=== PATIENT | female | born 1995 | race Caucasian/White ===

== ENCOUNTER 2022-06-07 10:40 | Outpatient (REF) | payer OTHER, SELFPAY ==
--- NOTE | ~2022-06-07 | US_ITS ---
EXAMINATION: US PELVIS CLINICAL INFORMATION: Left lower quadrant pain. COMPARISON: None. TECHNIQUE: Ultrasound of the pelvis is performed using both transabdominal and transvaginal transducers along with Doppler. Transvaginal imaging is performed due to inadequate visualization transabdominally. FINDINGS: Uterus: The uterus is retroverted, retroflexed and measures 8.1 cm in length, 4.3 cm in AP and 5.2 cm wide. The double wall endometrial thickness is 1.1 cm. The uterus is smooth in contour and has normal myometrial echogenicity. No visible fibroid. Adnexa: Both ovaries are visualized. There is normal color flow to the adnexa. There is no ovarian torsion. There is no pelvic ascites or fluid collection. Right ovary measures 3.4 x 2.6 x 2.4 cm and volume 11.11 mL. Left ovary measures 3.2 x 2.6 x 2.0 cm and volume 8.7 mL. There is an anechoic cyst in the left adnexa measuring 2.5 x 1.9 x 2.17 cm, question exophytic ovarian cyst versus paraovarian cyst. It has internal septation. No free fluid seen in the cul-de-sac. US/US pelvic and transvaginal IMPRESSION: Unremarkable uterus and right ovary. Left paraovarian versus exophytic ovarian cyst. There is no free fluid in cul-de-sac.
== END 2022-06-07 10:41 | disposition home or self-care (01) ==
LOC: HO.US 10:40
PROVIDERS: Visit Provider Advanced Practice Midwife
DX: R10.32 Left lower quadrant pain (principal)
CPT/HCPCS: 76830; 76856

== ENCOUNTER → 2023-05-06 14:30 | Outpatient (BNV) | payer OTHER, SELFPAY | PROVIDERS: Visit Provider Radiology Diagnostic Radiology | DX: N63.10 Unspecified lump in the right breast, unspecified quadrant (principal) | CPT/HCPCS: 76642 ==

== ENCOUNTER 2023-05-06 14:40 | Outpatient (REF) | payer OTHER, SELFPAY ==
--- NOTE | ~2023-05-06 | US_ITS ---
EXAMINATION: US DIAGNOSTIC ULTRASOUND BREAST, right axilla. CLINICAL INFORMATION: Palpable abnormality right axillary region, 27-year-old female. COMPARISON: None available. TECHNIQUE: Ultrasound of the right axilla is performed with real-time gibbs scale imaging and color Doppler. Imaging was performed in the region as indicated by the patient. FINDINGS: Within the right lower axilla, there is a dermal-based hyperechoic lesion measuring 0.6 x 0.6 x 0.4 cm, with circumscribed margins, through-transmission, and internal color vascularity on Doppler flow. There is associated thinning of the skin abutting the superior margin of the lesion. The finding is most consistent with a sebaceous cyst or other dermal lesion. Results were discussed with the patient at time of visit. Surgical management is recommended. US/US breast RT limited mamm only IMPRESSION: Palpable abnormality in the right lower axilla correlates with a hyperechoic vascular dermal lesion measuring 6 x 6 x 4 mm. Surgical management recommended. Findings and recommendations were discussed with the patient directly. ASSESSMENT: BI-RADS 2: Benign RECOMMENDATION: Clinical/surgical management recommended.
== END 2023-05-06 14:41 | disposition home or self-care (01) ==
LOC: HO.MAMMO 14:40
PROVIDERS: Visit Provider Advanced Practice Midwife
DX: R22.31 Localized swelling, mass and lump, right upper limb (principal)
CPT/HCPCS: 76642

== ENCOUNTER 2023-05-20 09:07 | Outpatient (AMB) | payer OTHER, SELFPAY ==
--- NOTE | 2023-05-20 09:11 | MHC.OFFVIS ---
Intake Vital Signs 05/20/23 09:17 Height 5 ft 3 in Weight 179 lb BMI 31.7 BP 134/72 Blood Pressure Location Lt brachial Position Sitting Pulse 83 Intake Visit Reasons: Right axillary mass Intake Note: Patient is seen in office for evaluation and treatment of a right axillary mass. Patient c/o: onset 8 to 9 months, increase/decrease, painful when growing, dark spot, denies discharge, redness, swelling, nausea, vomit, diarrhea, constipation Financial Intern Required: No Accompanied by: Self / Same As Patient Allergies No Known Allergies [No Known Allergies*] Allergy (Unverified 06/12/20 17:03) Medication List - Last Reconciled 05/20/23 by Ronak Mendoza MD No Known Home Meds HPI HPI Comments History of Present Illness Details 27-year-old female patient presenting with complaints of a palpable lump located in the right axilla. This occasionally will increase in size but then decrease in size. She reports occasional discomfort and skin redness but denies any discharge from the lesion. She denies any previous surgery at this location. Workup with ultrasound did reveal a subcutaneous lesion which appears possibly related to a sebaceous cyst. She is interested in having the lesion removed. [facility] [place] Family History Maternal Grandfather Colon cancer Social History Alcohol intake: current Patient Tobacco Use Status: Never used Tobacco Review of Systems Const All systems reviewed & are unremarkable except as noted in HPI and below Denies chills, Denies fever(s), Denies headache(s), Denies poor appetite and Denies weakness ENT Denies headache(s) Card Denies chest pain, Denies irregular heart rhythm, Denies palpitations and Denies dyspnea Resp Denies cough, Denies excessive phlegm production and Denies dyspnea GI Denies abdominal pain, Denies bloating, Denies change in bowel habits, Denies constipation, Denies heartburn, Denies diarrhea, Denies nausea and Denies vomiting Denies urinary frequency Musc Denies back pain, Denies muscle weakness and Denies numbness Skin/Breast Denies changing lesions and Denies unusual bruising Neuro Denies headache(s), Denies numbness, Denies paresthesias and Denies weakness Psych Denies anxiety and Denies depression Endo Denies palpitations Timo/Lymph Denies lymphadenopathy Physical Exam Const General: cooperative and no acute distress Nutritional Appearance: well nourished Orientation/consciousness: patient oriented x3 Limitations: no limitations HEENT Head: Yes normocephalic and Yes atraumatic Ears: hearing grossly normal bilaterally Chest Chest/axillae images: 1. 1.5 cm subcutaneous cyst, mobile within the subcutaneous tissue with no fluctuance to palpation. Nontender to palpation. Resp Effort & Inspection: normal respiratory effort, no audible wheezes, no cough and no respiratory distress Cardio Jugular venous distension: no JVD GI Inspection: Yes normal to inspection Skin Other: Warm, dry, no rash Neuro General: patient oriented x3 Extrem General: Yes no clubbing, cyanosis or edema Assessment & Plan Assessment & Plan (1) Epidermal inclusion cyst: Code(s): L72.0 - Epidermal cyst Plan 27-year-old female patient with an apparent epidermal inclusion cyst of the right axilla confirmed by ultrasound which appears to wax and wane in size. Options include continued observation verses excision. Patient with for further have the lesion removed and after discussion of the procedure, risks, and alternatives consents to an excision of the right axillary epidermal inclusion cyst as a minor surgery under local anesthesia. Coding Level of Care Code New Pt Level 4 (11110) Diagnoses Epidermal inclusion cyst L72.0
[2023-05-20 09:17] VITALS: BP 134/72; PULSE 83; BMI 31.7
== END 2023-05-20 09:20 | disposition home or self-care (01) ==
PROVIDERS: PCP Nurse Practitioner Family; Referring Provider Advanced Practice Midwife; Visit Provider Surgery
DX: L72.0 Epidermal cyst (principal)
CPT/HCPCS: 99204

== ENCOUNTER → 2023-05-20 09:07 | Outpatient (BNVA) | payer OTHER, SELFPAY | PROVIDERS: PCP Nurse Practitioner Family; Referring Provider Advanced Practice Midwife; Visit Provider Surgery | DX: L72.0 Epidermal cyst (principal) | CPT/HCPCS: 99202 ==

== ENCOUNTER 2023-06-09 13:43 | Outpatient (REF) | payer OTHER, SELFPAY ==
[2023-06-09 14:03] VITALS: BMI 32.0
[2023-06-09 14:04] VITALS: BP 115/63; PULSE 64; RESP 16; TEMP 36.4; O2SAT 100
[2023-06-09 14:41] VITALS: BP 119/74; PULSE 65; RESP 16; O2SAT 100
--- NOTE | 2023-06-09 14:44 | W.PM.OPN ---
Operative Note Operative Note Date of Service: 06/09/23 Narrative: Preoperative diagnosis: Epidermal inclusion cyst right axilla Postoperative diagnosis: Same Procedure: Excision of epidermal inclusion cyst right axilla Surgeon: Ronak Mendoza MD Party Plan Sales Unit Sales Leader: AMADEO Tillman Anesthesia: Local lidocaine 1% with epinephrine Indications for procedure: 27-year-old female patient presenting with a palpable cyst in the right axilla which is causing some discomfort. Patient is requested excision. Operative findings: 1 cm epidermal inclusion cyst right axilla Specimen: Epidermal inclusion cyst right axilla Estimated blood loss: Less than 2 mL Complications: None Procedure details: Patient was brought to the minor surgery suite placed in a supine position. Patient's right arm was placed over her head. The site of surgery was confirmed by the patient in the right axilla. After assuring informed consent the skin was prepped with Betadine and draped in a sterile fashion. Local anesthesia was then infiltrated circumferentially around the lesion. Incision was then made over the lesion carried out through subcutaneous tissue. Sharp dissection was then used to dissect the lesion from the surrounding subcutaneous tissue. The lesion was passed off the table and sent to pathology for further examination. After assuring adequate hemostasis the skin was closed using interrupted 4-0 nylon sutures. Sterile dressings consisting of 2 x 2 gauze and Tegaderm were then applied. The patient tolerated the procedure well. She was discharged to home in stable condition.
== END 2023-06-09 13:44 | disposition home or self-care (01) ==
LOC: HO.MS 13:43
PROVIDERS: Visit Provider Surgery
PROC: (CPT 11401; principal; 2023-06-09 14:20)
DX: L72.0 Epidermal cyst (principal)
CPT/HCPCS: 11401; 88304

== ENCOUNTER → 2023-06-09 13:43 | Outpatient (BNV) | payer OTHER, SELFPAY | PROVIDERS: Visit Provider Surgery | DX: L72.0 Epidermal cyst (principal) | CPT/HCPCS: 11401 ==

== ENCOUNTER 2023-06-17 09:29 | Outpatient (AMB) | payer OTHER, SELFPAY ==
--- NOTE | 2023-06-17 09:35 | A.OFFVIS_ITS ---
Intake Vital Signs 3 06/17/23 09:45 Height 5 ft 2 in Weight 179 lb BMI 32.7 BP 120/80 Blood Pressure Location Lt brachial Position Sitting Intake Visit Reasons: S/P exc. Rt axillary mass Intake Note: Patient is seen in office for post op assessment post excision of right axillary mass. Patient c/o: denies any concerns Hotel Dining Room Cashier Required: No Accompanied by: Self / Same As Patient Allergies No Known Allergies [No Known Allergies*] Allergy (Unverified 06/17/23 09:45) HPI HPI Comments 2 History of Present Illness0 Details 27-year-old female patient presenting wi th complaints of a palpable lump located in the right axilla. This occasionally will increase in size but then decrease in size. She reports occasional discomfort and skin redness but denies any discharge from the lesion. She denies any previous surgery at this location. Workup with ultrasound did reveal a subcutaneous lesion which appears possibly related to a sebaceous cyst. She is interested in having the lesion removed. She underwent excision of the right axillary cyst on 06/09/2023. Pathology revealed a ruptured and organizing epidermal inclusion cyst. She tolerated the procedure well denies any ongoing problems. [facility] Surgical History Hx of excision of epidermal inclusion cyst (06/09/23) Family History Maternal Grandfather Colon cancer Social History Alcohol intake: current Patient Tobacco Use Status: Never used Tobacco Physical Exam Vital Signs: Last Vital Signs BP 120/80 06/17/23 09:45 BMI result Body Mass Index 32.7 Chest Other: Excision site in the right axilla is clean, dry, and intact without redness or discharge. Sutures removed and wounds found to be well healed. Chest/axillae images: 2 1. Incision right axilla Skin Other: Warm, dry, no rash Extrem Other: No edema Assessment & Plan Assessment & Plan (1) Epidermal inclusion cyst: Code(s): L72.0 - Epidermal cyst Plan 27-year-old female patient status post excision of a right axilla epidermal inclusion cyst. She tolerated the procedure well and her wounds found to be well healed. She should follow up as needed. Coding Level of Care Code Global (78656) Diagnoses Epidermal inclusion cyst L72.0
[2023-06-17 09:45] VITALS: BP 120/80; BMI 32.7
== END 2023-06-17 09:44 | disposition home or self-care (01) ==
PROVIDERS: PCP Nurse Practitioner Family; Visit Provider Surgery
DX: L72.0 Epidermal cyst (principal)
CPT/HCPCS: 99024

== ENCOUNTER → 2023-06-17 09:29 | Outpatient (BNVA) | payer OTHER, SELFPAY | PROVIDERS: PCP Nurse Practitioner Family; Visit Provider Surgery ==

== ENCOUNTER 2023-07-21 10:00 | Outpatient (REF) | payer OTHER, SELFPAY ==
[2023-07-21 12:10] LABS: Alanine Aminotransferase 30 U/L (0-31); Albumin Level 4.2 g/dL (3.5-5.0); Alkaline Phosphatase 85 U/L (39-117); Anion Gap 12 (12-20); Aspartate Amino Transferase 25 U/L (5-31); Bilirubin Total 0.3 mg/dL (0.0-1.0); Blood Urea Nitrogen 16 mg/dL (9-16); Calcium 9.2 mg/dL (8.4-10.2); Carbon Dioxide 25 mmol/L (22-29); Chloride 108 mmol/L (96-108); Cholesterol 174 mg/dL (<200); Estimated Glomerular Filt Rate > 60; Glucose Random 94 mg/dL (60-115); HDL Cholesterol 47 mg/dL (>40); LDL Cholesterol Calculated 112 mg/dL (<100); Sodium 141 mmol/L (135-145); Total Protein 7.4 g/dL (6.5-8.0); Triglycerides 75 mg/dL (<150)
[2023-07-21 14:29] LABS: CT PCR NOT DETECTED (Not Detect.); NG PCR NOT DETECTED (Not Detect.)
[2023-07-24 13:44] LABS: HIV RNA PCR Qn Copies Not Detected Copies/mL; HIV RNA PCR Qn Log Copies Not Detected Log cps/mL
[2023-07-25 11:25] LABS: RPR Rapid Plasma Reagin NON-REACTIVE (NON-REACTIVE)
== END 2023-07-21 10:01 | disposition home or self-care (01) ==
LOC: HO.HHCL 10:00
PROVIDERS: Visit Provider Nurse Practitioner Family
DX: Z00.00 Encounter for general adult medical examination without abnormal findings (principal); Z11.4 Encounter for screening for human immunodeficiency virus [HIV]; Z11.3 Encounter for screening for infections with a predominantly sexual mode of transmission
CPT/HCPCS: 0353U; 80053; 80061; 86592; 87536; 87900

== ENCOUNTER 2023-10-17 08:38 | Outpatient (REF) | payer OTHER, SELFPAY ==
[2023-10-17 10:26] LABS: Hematocrit 36.8 % (37.0-47.0); Hemoglobin 11.7 g/dl (12.0-16.0); Mean Corpuscular HGB Conc 31.8 g/dl (31.0-35.0); Mean Corpuscular Hemoglobin 30.6 pg (27.0-33.0); Mean Corpuscular Volume 96.3 fL (80.0-98.0); Mean Platelet Volume 10.6 fL (9.4-12.3); Platelet Count 254 X10*3/uL (160-400); Red Blood Count 3.82 X10*6/uL (4.20-5.50); Red Cell Distribution Width 12.4 % (11.0-16.0); White Blood Count 4.1 X10*3/uL (4.8-10.8)
== END 2023-10-17 08:39 | disposition home or self-care (01) ==
LOC: HO.LAB 08:38
PROVIDERS: PCP Nurse Practitioner Family; Visit Provider Nurse Practitioner Family
DX: K62.5 Hemorrhage of anus and rectum (principal)
CPT/HCPCS: 36415; 85027; 99202

== ENCOUNTER 2023-10-17 08:38 | Outpatient (AMB) | payer OTHER, SELFPAY ==
--- NOTE | 2023-10-17 08:42 | MHC.OFFVIS ---
Intake Vital Signs 10/17/23 08:43 Height 5 ft 3 in Weight 185 lb 3.013 oz BMI 32.8 BP 121/63 Blood Pressure Location Lt brachial Position Sitting Pulse 69 Intake Visit Reasons: Rectal bleeding/family hx CA Intake Note: Didier presents in the office as a new patient for rectal bleeding and family hx of cancer. CC: Rectal bleeding is on and off. No irregular bowel movements. Its normal for her just when she has a BM she does have pain and bleeding. Residential Care Facility Manager Required: No Allergies No Known Allergies [No Known Allergies*] Allergy (Unverified 10/17/23 08:44) HPI Rectal bleeding/family hx CA HPI Details 27-year-old female with no significant medical history is here today for initial consultation. 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 Patient reports that she usually moves her bowels normally. Reports that occasionally she will have blood in his stool. Patient reports that the last time it was 2 weeks ago. Patient also reports rectal pain. Admits to holding her bowels occasionally when she is work and denies her stool being hard. Patient admits to family history of CRC. Patient's maternal grandfather was diagnosed with colorectal cancer at age 45. Patient denies any abdominal pain or discomfort. Denies any weight loss. Denies ribbon like stools. Patient denies any dyspepsia, dysphagia or odynophagia. Denies any nausea or vomiting. Denies any diarrhea. [facility] Surgical History Hx of excision of epidermal inclusion cyst (06/09/23) Family History Maternal Grandfather Colon cancer Social History Alcohol intake: current Patient Tobacco Use Status: Never used Tobacco Review of Systems Const Denies weight gain and Denies weight loss ENT Reports no additional complaints, Denies dysphagia and Denies odynophagia Card Reports no additional complaints Resp Reports no additional complaints GI Denies abdominal pain, Denies belching, Denies melena, Denies bloating, Denies change in bowel habits, Denies dysphagia, Denies excessive flatus, Denies dyspepsia, Denies heartburn, Denies diarrhea, Denies loose stools, Denies nausea, Denies odynophagia, Denies vomiting and Reports other (Rectal discomfort with bowel movements) Reports no additional complaints Musc Reports no additional complaints Neuro Reports no additional complaints Psych Reports no additional complaints Endo Reports no additional complaints Physical Exam Vital Signs: Last Vital Signs Pulse 69 10/17/23 08:43 BP 121/63 10/17/23 08:43 BMI result Body Mass Index 32.8 Const General: healthy appearing, no acute distress and well developed Nutritional Appearance: obese Orientation/consciousness: patient oriented x3 Resp Effort & Inspection: normal respiratory effort, able to speak in complete sentences, no tracheal deviation and symmetric chest movement Auscultation: clear to auscultation bilaterally Cardio Rate: regular rate GI Inspection: Yes normal to inspection, No distended and Yes obesity Palpation (GI): Soft to palpation, not firm, nontender and No hepatosplenomegaly present Auscultation: normal bowel sounds Rectal Exam - Female: visual inspection normal, normal sphincter tone, No External hemorrhoid(s) present and No Internal hemorrhoid(s) present General: Yes no CVA tenderness Back/Spine/Pelvis Back: no CVA tenderness Skin General skin exam: elasticity normal, turgor normal and dry skin Neuro General: patient oriented x3 Psych Appearance: grossly normal Mental Status: mental status grossly normal Assessment & Plan Assessment & Plan (1) Rectal bleed: Code(s): K62.5 - Hemorrhage of anus and rectum Plan While we wait to bulk patient for colonoscopy we will check her blood work. Patient will take stool softener. Patient was encouraged not to hold her stools and go to the bathroom when she has the urge to do so. Patient denies having any diarrhea. Script for Proctosol send. Patient was encouraged to increase fluid intake and activity to promote better bowel motility. No hemorrhoids found on rectal exam unless patient does have internal hemorrhoids that can not be seen. Patient will return in 5 weeks, sooner on as needed basis. Patient is agreeable to this plan and verbalizes understanding of instructions she was given the opportunity to ask questions and all questions answered. Thank you for allowing me to participate in her care Orders: Orders Complete Blood Count no Diff Today K62.5 - Hemorrhage of anus and rectum Medications: New docusate sodium 100 mg PO DAILY 30 caps 3RF K59.00 - Constipation, unspecified hydrocortisone 2.5% (Proctosol HC) 1 appl SC BID-QID PRN 30 grams 2RF hemorrhoids K64.9 - Unspecified hemorrhoids Coding Level of Care Code New Pt Level 3 (58645) Diagnoses Rectal bleed K62.5 Time Spent (min) 40 Comment 30 minutes spent with patient and additional 10 minutes spent reviewing her records
[2023-10-17 08:43] VITALS: BP 121/63; PULSE 69; BMI 32.8
== END 2023-10-17 10:06 | disposition home or self-care (01) ==
PROVIDERS: PCP Nurse Practitioner Family; Visit Provider Nurse Practitioner Family
DX: K62.5 Hemorrhage of anus and rectum (principal)
CPT/HCPCS: 99203

== ENCOUNTER 2024-04-02 18:19 | Outpatient (REF) | payer OTHER, SELFPAY ==
[2024-04-03 01:51] LABS: CT PCR NOT DETECTED (Not Detect.); NG PCR NOT DETECTED (Not Detect.)
== END 2024-04-02 18:20 | disposition home or self-care (01) ==
LOC: HO.HHCLNP 18:19
PROVIDERS: Visit Provider Advanced Practice Midwife
DX: N92.3 Ovulation bleeding (principal); Z11.3 Encounter for screening for infections with a predominantly sexual mode of transmission
CPT/HCPCS: 87491; 87591

== ENCOUNTER 2024-04-09 13:41 | Outpatient (REF) | payer OTHER, SELFPAY ==
--- NOTE | ~2024-04-09 | US_ITS ---
EXAMINATION: US PELVIS CLINICAL INFORMATION: Dysmenorrhea. COMPARISON: Pelvic ultrasound 06/07/2022. TECHNIQUE: The patient declined transvaginal imaging. Exam performed transabdominally. FINDINGS: Uterus: The uterus is retroverted and retroflexed; and measures 9.9 x 3.9 x 4.1 cm. The uterus appears normal. The double wall endometrial thickness is 13 mm. Adnexa: The right ovary measures 5.6 x 4.5 x 4.0 cm, volume 54 mL. Nonsimple cyst with internal echoes measuring 4.2 x 3.3 x 2.8 cm. Most likely hemorrhagic cyst, but not definitively characterized due to limited transabdominal imaging. Normal arterial and venous Doppler waveforms are seen in the right ovary. No evidence of torsion. The left ovary appears normal measuring 2.1 x 1.5 x 1.2 cm, volume 2 mL. No free fluid. US/US pelvic complete IMPRESSION: Normal-appearing uterus. 4.2 cm likely hemorrhagic cyst in the right ovary. Recommend follow-up ultrasound in 6-12 weeks.
== END 2024-04-09 13:42 | disposition home or self-care (01) ==
LOC: HO.US 13:41
PROVIDERS: PCP Nurse Practitioner Family; Visit Provider Advanced Practice Midwife
DX: N94.6 Dysmenorrhea, unspecified (principal); N92.3 Ovulation bleeding
CPT/HCPCS: 76856

== ENCOUNTER 2024-06-04 16:02 | Emergency (ER) | payer OTHER, SELFPAY ==
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
[2024-06-04 16:47] VITALS: BP 141/91; PULSE 69; RESP 14; TEMP 36.7; O2SAT 98; BMI 31.0
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
[2024-06-04 22:11] VITALS: BP 130/45; PULSE 64; RESP 16; TEMP 35.7; O2SAT 99
[2024-06-05 01:05] VITALS: BP 130/45; PULSE 66; RESP 16; TEMP 36.6; O2SAT 100
== END 2024-06-05 01:06 | disposition home or self-care (01) ==
PROVIDERS: Emergency Provider Emergency Medicine
DX: S06.0X0A Concussion without loss of consciousness, initial encounter (principal); V43.62XA Car passenger injured in collision with other type car in traffic accident, initial encounter; Y93.89 Activity, other specified; Y92.414 Local residential or business street as the place of occurrence of the external cause; Y99.9 Unspecified external cause status
CPT/HCPCS: 70450; 72125; 99282; 99284

== ENCOUNTER 2024-12-03 16:43 | Outpatient (REF) | payer OTHER, SELFPAY ==
--- OUTSIDE RECORDS SUMMARY | 2024-12-03 18:15 | XMS_ITS | Clinical Summary ---
Author Organization [facility] Address [address] [place] [phone] Phone Care Team Providers Care Cytology Technologist Name Role Phone Melissa Mccloud MD Primary Care Provider Unavailabl e Immunizations Immunization Administration Dates Next Due DTaP 5 01/18/2003, 9,07/18/1998, 998,02/19/1998 H1N1 07/30/2009 HPV, Quadrivalent 03/05/2011,10/21/2010,08/04/20 10 Hep A, ped/adol 12/26/2014,12/18/2013 Hep B, ped/adol 07/18/1998,1997,1997 Hib (PRP-T) 03/25/1999, 8,04/23/1998, 998 IPV 01/18/2003, 1,04/23/1998, 998 Influenza Split 08/04/2010 Influenza, intranasal, trivalent 12/22/2012 MMR 11/24/2001,12/03/1998 Meningococcal Conj (Menactra) MCV4P 12/26/2014,1 09/29/2008 Tdap 07/30/2009 Varicella 05/10/2008,05/27/1999 Family History Relation Name Status Comments Brother Alive Brother: Alive and well Father Alive Father: Alive a nd well Mother Alive Mother: Alive a nd well Other Family history of *Sudden /OR under 55, Family history of Deafness, Family history of Seizure disorder, Family history of Diabetes mellitus, Family history of *CVA/Stroke, Family history of Hypertension, Family history of *Heart Disease, No family history of *Thrombophilia, Family history of *Dental caries Sister 1 Alive Sister: Alive a nd well, Alive and well Sister 2 Alive Sister: Alive a nd well, Alive and well Social History Tobacco Use Types Packs/Day Years Used Date Smoking Tobacco: Never Comments:Never smoker Comments Unknown Sex and Gender Information Value Date Recorded Sex Assigned at Not on file Legal Sex Female 5:07 PM EDT Gender Identity Not on file Sexual Orientation Not on file Last Filed Vital Signs Vital Sign Reading Time Taken Comments Blood Pressure 94/52 03/11/2016 12:00 AM EDT Pulse 78 05/03/2015 12:00 AM EDT Temperature 36.8 ??C (98.3 ??F) 05/03/2015 12:00 AM E DT Respiratory Rate - - Oxygen Saturation - - Inhaled Oxygen Concentration - - Weight 60.8 kg (134 lb) 03/11/2016 12:00 AM EDT Height 162.6 cm (5' 4 ) 03/11/2016 12:00 AM EDT Body Mass Index 23 03/11/2016 12:00 AM EDT Plan of Treatment Health Maintenance Due Date Last Done Comments Hepatitis B Vaccines (3 of 3 - 3-dose series) 09/12/1998 07/18/1998, 1997, 1997 DTaP,Tdap,and Td Vaccines (7 - Td or Tdap) 07/30/2019 07/30/2009, 01/18/2003, 05/27/1999, Additional history exists Influenza Vaccines (#1) 2024 12/22/2012, 08/04 COVID-19 Vaccine ( season) 2024 HIB Vaccines Completed 03/25/1999, 06/27, 04/23/1998, Additional history exists MMR Vaccines Completed 11/24/2001, 12/03/1998 IPV Vaccines Completed 01/18/2003, 07/27, 04/23/1998, Additional history exists Varicella Vaccines Completed 05/10/2008, 05/27/1999 HPV Vaccines Completed 03/05/2011, 09/27, 08/04/2010 Hepatitis A Vaccines Completed 12/26/2014, 12/19/19 14 Meningococcal Vaccine Completed 12/26/2014, 009 Men B Vaccine Aged Out No longer mason handy based on patient's age to complete this topic Pneumococcal Vaccine Aged Out No long er eligible based on patient's age to complete this topic Care Teams Cytology Technologist Relationship Specialty Start Date End Date Melissa Mccloud MD PCP - General 05/06/17
--- OUTSIDE RECORDS SUMMARY | 2024-12-03 18:15 | XMS_ITS | Encounter Summary ---
Author Organization [employer] Address [address] [place] [address] Care Team Providers Care Commercial Real Estate Attorney Name Role Phone Valentine Lyman NP Primary Care Provider Reason for Referral * Consultation (Routine) - Pending Review Specialty Diagnoses / Procedures Referred By Polo adams Referred To Contact Nutrition Diagnoses Dietary counseling Valentine Lyman NP [address] [place] [address] Phone: tel: fax: Referral ID Status Reason Start Date Expiration Date Visits Requested Visits Authorized [id number] Pending Review Consult and Treat 11/07/2024 11/07/2025 1 1 Reason for Visit * Reason Onset Date Comments Referral 10/30/2024 Encounter Details Date Type Department Care Team (Late st Contact Info) Description 10/30/2024 Telephone [facility] [address] [place] [address] [place] [address] Referral Social History Tobacco Use Types Packs/Day Years Used Date Smoking Tobacco: Never Smokeless Tobacco: Never Alcohol Use Standard Drinks/Week Comments Yes 5 (1 standard drink = 0.6 oz pur e alcohol) 5 per month Depression Answer Date Recorded Patient Health Questionnaire-9 Score 0 06/24/2023 Housing Stability Answer Date Recorded What is your housing situation today? I have oleg kenny 07/05/[address] you li ve. Do you have problems with any of the following? Pests such as bugs, ants, or mice 07/05/2023 Food Insecurity Answer Date Recorded Within the past 12 months, y ou worried that your food would run out before you got money to buy more: Often true 07/21/2023 Within the past 12 months,th e food you bought just didn't last and you didn't have enough money to get more: Often true Transportation Answer Date Recorded In the past 12 months, has l ack of transportation kept you from medical appts, meetings, work or from getting things needed for daily living? No 07/21/2023 Utilities Answer Date Recorded In the past 12 months, has t he electric, gas, oil or water company threatened to shut off services in your home? No 07/21/2023 Depression Answer Date Recorded Patient Health Questionnaire-2 Score 0 06/24/2023 Comments No Sex and Gender Information Value Date Recorded Sex Assigned at Female 07/26/2022 10:24 AM EDT Legal Sex Female 10:24 AM EDT Gender Identity Female 07/26/2022 10:24 AM EDT Sexual Orientation Straight 07/26/2022 10 :24 AM EDT documented as of this encounter Miscellaneous Notes * Addendum Note - Valentine Lyman NP - 11/07/2024 9:35 AM ESTAddended by: VALENTINE LYMAN on: 11/07/2024 09:35 AM Modules accepted: Orders * Telephone Encounter - Valentine Chowdhury - 10/30/2024 11:40 AM EST PT is still seeing Gabby, and would like to continue with Nutrition, can a new referral be sent tocontinue seeing Gabby along with an additional primary diagnosis Code. documented in this encounter Plan of Treatment Upcoming Encounters Date Type Department Care Team (Late st Contact Info) Description 12/11/2024 9:00 AM EDT Clinical Support [facility] [address] [place] [address] [place] [address] Scheduled Referrals Name Type Priority Associated Diagnoses Orde r Schedule Referral to Nutrition Therapy Outpatient Referral Routine Dietary counseling Expected: 11/07/2024 (Approximate), Expires: 11/07/2025 documented as of this encounter Visit Diagnoses Diagnosis Dietary counseling- Primary Dietary surveillance and counseling documented in this encounter Additional Health Concerns Assessment Noted Time PHQ-9 Depression Total Score: 0 06/24/20 23 1:13 PM EDT documented as of this encounter Care Teams Commercial Real Estate Attorney Relationship Specialty Start Date End Date Valentine Lyman NP [address] [place] [address] PCP - General Family Medicine 07/23/24 documented as of this encounter
--- OUTSIDE RECORDS SUMMARY | 2024-12-03 18:15 | XMS_ITS | Clinical Summary ---
Author Organization [employer] Address [address] [facility] 7t [place] [address] Care Team Providers Care Wig Dresser Name Role Phone Valentine Lyman NP Primary Care Provider [phone] Allergies No known active allergies Medications escitalopram (Lexapro) 5 MG tabletIndicat ions:PMDD (premenstrual dysphoric disorder) Take 1 tablet (5 mg) by mouth Once per day. 30 tablet 2 12/04/19 25 025 Active multivitamin () 27-0.8 MG tablet Take 1 tablet by mouth Once per day. 30 tablet 11 12/04/19 25 Active hydrocortison e (Anusol-HC) 2.5 % rectal cream APPLY RECTALLY 2-4 TIMES PER DAY NEEDED FOR HEMORRHOIDS 10/17/19 24 025 Discontinued(Th erapy completed) docusate sodium (Colace) 100 MG capsule Take 100 mg by mouth in the morning. 10/17/19 24 025 Discontinued(Th erapy completed) multivitamin () 27-0.8 MG tablet Take 1 tablet by mouth Once per day. 30 tablet 11 01/24/20 24 025 Discontinued(Re order (will not trigger notification to Pharmacy)) ibuprofen 800 MG tablet 1 tablet every 8 hours with food x 5-7d during menses as needed 90 tablet 04/02/20 24 025 Discontinued Active Problems Problem Noted Date Diagnosed Date Exposure to communicable disease 12/03/2024 Menorrhagia with regular cycle 12/03/2024 Class 1 obesity with body ma ss index (BMI) of 31.0 to 31.9 in adult 12/03/2024 Encounters Date Type Department Care Team Description 12/03/2024 2:00 PM EDT Office Visit [address] [address] Valentine Lyman NP Exposure to communicable disease (Primary Dx); Menorrhagia with regular cycle; Class 1 obesity with body mass index (BMI) of 31.0 to 31.9 in adult, unspecified obesity type, unspecified whether serious comorbidity present; PMDD (premenstrual dysphoric disorder); Healthcare maintenance 11/26/2024 Patient Outreach [facility] [address] [place] [address] Valentine Lyman NP Pre-visit Planning (SDOH unable to reach LVM ) 11/22/[address] [address] Cristine Gramajo MA Chart Prep 10/30/2024 9:00 AM EST Clinical Support [facility] DIABETES/NUTRITION [address] [place] [address] Dietary counseling (Primary Dx) 10/30/[address] Referral 10/30/2024 Travel 10/01/[address] [address] Valentine Lyman NP telephone call 09/27/[address] [address] Cristine Gramajo MA Chart Prep 09/25/2024 Patient Outreach [facility] [address] [place] [address] Valentine Lyman NP Pre-visit Planning (SDOH unable to reach LVM) from Last 3 Months Immunizations Name Administration Dates Next Due DTaP, 5 pertussis antigens 01/18/2003,,07/18/1998,04/23,02/19/1998 HPV, Quadrivalent 03/05/2011,10/21/2010,08/04/20 10 Hep A, ped/adol, 2 dose 12/26/2014,12/18/2013 Hep B, Adolescent or Pediatric 07/18/1998,1997,1997 Hib (PRP-T) 03/25/1999, 8,04/23/1998,02/19 IPV 01/18/2003, 1,04/23/1998,02/19 Influenza injectable quadriv alent preservative free 06/24/2023 Influenza, Split (incl. david fied surface antigen) 08/04/2010 Influenza, live, intranasal 12/22/2012 Influenza, seasonal, injecta ble, preservative free 07/01/2017 MMR 11/24/2001,12/03/1998 Meningococcal MCV4P [id number]-135 12/26/2014,07/30/20 09 Novel [id number], all formulations 07/30/2009 Tdap 03/22/2022,07/30/2009 Varicella 05/10/2008,05/27/1999 Family History Medical History Relation Name Comments Colon cancer Maternal Grandfather Heart attack Maternal Grandmother Diabetes type II Paternal Grandmother Relation Name Status Comments Maternal Grandfather Maternal Grandmother Paternal Grandmother Social History Tobacco Use Types Packs/Day Years Used Date Smoking Tobacco: Never Smokeless Tobacco: Never Tobacco Cessation:Counseling Given: Not Answered Alcohol Use Standard Drinks/Week Comments Yes 5 (1 standard drink = 0.6 oz pur e alcohol) 5 per month Depression Answer Date Recorded Patient Health Questionnaire-9 Score 16 12/03/2024 Patient Health Questionnaire-9 Score 16 12/03/2024 Last PHQ-9: Questionnaire Data Not on file 0 12/03/2024 Housing Stability Answer Date Recorded What is your housing situation today? I have oleg kenny 12/03/[address] you li ve. Do you have problems with any of the following? None of the above 12/03/2024 Food Insecurity Answer Date Recorded Within the past 12 months, y ou worried that your food would run out before you got money to buy more: Never True 12/03/2024 Within the past 12 months,th e food you bought just didn't last and you didn't have enough money to get more: Never True 06/2025 Transportation Answer Date Recorded In the past 12 months, has l ack of transportation kept you from medical appts, meetings, work or from getting things needed for daily living? No 12/03/2024 Utilities Answer Date Recorded In the past 12 months, has t he electric, gas, oil or water company threatened to shut off services in your home? No 12/03/2024 Depression Answer Date Recorded Patient Health Questionnaire-2 Score 3 12/03/2024 Internet Access Answer Date Recorded Internet Access Q1 Yes 12/03/2024 Internet Access Q2 Not on file 12/03/2024 Comments No Sex and Gender Information Value Date Recorded Sex Assigned at Female 07/26/2022 10:24 AM EDT Legal Sex Female 10:24 AM EDT Gender Identity Female 07/26/2022 10:24 AM EDT Sexual Orientation Straight 07/26/2022 10 :24 AM EDT Last Filed Vital Signs Vital Sign Reading Time Taken Comments Blood Pressure 106/68 12/03/2024 2:07 PM EDT Pulse 84 12/03/2024 2:07 PM EDT Temperature 35.8 ??C (96.4 ??F) 12/03/2024 2:07 PM ED T Respiratory Rate 18 12/03/2024 2:07 PM EDT Oxygen Saturation 98% 12/03/2024 2:07 PM EDT Inhaled Oxygen Concentration - - Weight 76.8 kg (169 lb 6.4 oz) 12/03/2024 2:07 P M EDT Height 160 cm (5' 3 ) 12/03/2024 2:07 PM EDT Body Mass Index 30.01 12/03/2024 2:07 PM EDT Plan of Treatment Upcoming Encounters Date Type Department Care Team (Late st Contact Info) Description 12/11/2024 9:00 AM EDT Clinical Support [facility] DIABETES/NUTRITION [address] [place] [address] [place] [address] Health Maintenance Due Date Last Done Comments COVID-19 Vaccine ( season) 2024 01/23/2021, 12/26/2020 Influenza Vaccine (#1) 2024 3, 07/01/2017, 12/22/2012, Additional history exists Family Planning (PISQ) 04/02/2025 04/02/2024 Pap Smear 04/14/2025 04/14/2022 Depression Monitoring (PHQ-9) 06/05/2025 12/03/2024, 12/03/2024 Alcohol/Substance Use Screening 12/03/2025 12/03/2024 Depression Screening 12/03/2025 12/03/2024, 12/04/19 SDOH Screening 12/03/2025 12/03/2024 Tobacco Screening 12/03/2025 12/03/2024 Lipid Panel 07/21/2028 07/21/2023 DTaP/Tdap/Td Vaccines (8 - Td or Tdap) 03/22/2032 03/22/2022, 07/30/2009, 01/18/2003, Additional history exists Zoster Vaccines (1 of 2) 2047 RSV Patients and Patients Aged 60 years or older (1 - 1-dose 75+ series) 2072 Hepatitis B Vaccines Completed 07/18/1998, 1997, 1997 HIB Vaccines Completed 03/25/1999, 06/27, 04/23/1998, Additional history exists IPV Vaccines Completed 01/18/2003, 07/27, 04/23/1998, Additional history exists HPV Vaccines Completed 03/05/2011, 09/27, 08/04/2010 Hepatitis A Vaccines Completed 12/26/2014, 12/19/19 14 Meningococcal Vaccine Completed 12/26/2014, 009 HIV Screening Completed 03/28/2023 Hepatitis C Screening Completed 03/28/2023, 022 Pneumococcal Vaccine: Pediatrics (0 to 5 Years) and At-Risk Patients (6 to 49) Years) Aged Out No longer eligible based on patient's age to complete this topic RSV under 20 months Aged Out No longe r eligible based on patient's age to complete this topic Rotavirus Vaccines Aged Out No longer eligible based on patient's age to complete this topic Procedures Procedure Name Priority Date/Time Associated Diagnosis Comments LIPID PANEL, STANDARD Routine 07/21/2023 10:06 AM EDT Routine health maintenance HEPATITIS C AB W/REFL TO HCV RNA, QN, PCR Routine 03/28/2023 10:26 AM EDT Encntr screen for infections w sexl mode of transmiss HIV 1/2 ANTIGEN/ANTIBODY, FOURTH GENERATION W/RFL Routine 03/28/2023 10:26 AM EDT Encntr screen for infections w sexl mode of transmiss THINPREP IMAGING SYSTEM PAP Routine 04/14/2022 11:19 AM EDT from Last 3 Months or Most Recently Relevant to Health Maintenance Results * (ABNORMAL) Lipid Panel, Standard (07/21/2023 10:06 AM EDT) Triglycerides 75 <150 mg/dL [facility] Comment:Desirable Triglyceri de: less than 150 mg/dLBorderline High Triglyceride 150-199 mg/dLHigh Triglyceride: 200-499 mg/dLVery High Triglyceride: greater than or equal to 5OO mg/dL Cholesterol 174 <200 mg/dL [facility] Comment:Desirable Cholestero l: less than 200 mg/dLBorderline High Cholesterol: 200-239 mg/dLHigh Cholesterol: greater than 239 mg/dL LDL Cholesterol Calculated 112(H) <100 mg/dL [facility] Comment:Desirable LDL: less than 100 mg/dLNear Optimal/Above Optimal LDL: 110- 129 mg/dLBorderline High LDL: 130-159 mg/dLHigh LDL: 160-189 mg/dLVery High LDL: greater than or equal to 190 mg/dL HDL Cholesterol 47 >40 mg/dL [facility] Comment:Desirable HDL: great er than 40 mg/dL Note: This HDL assay may give artificially low results in patients with liver disease. Blood Venous blood specimen / Unknown 07/21/2023 10:06 AM EDT 07/21/2023 11:33 AM EDT Kimberley Kam [employer]ESS[employer] LAB BLOOD ORDERABLES Final Resu lt [facility] [address] [place] [phone] * Hepatitis C Antibody with Reflex to HCV, RNA, Quantitative, Real-Time PCR (03/28/2023 10:26 AM EDT) Hepatitis C Antibody NON-REACT ASHLY NON-REACT ASHLY [facility] [place] [employer] Comment: HCV antibody was non-reactive. There is no laboratory evidence of HCV infection. In most cases, no further action is required. However, if recent HCV exposure is suspected, a test for HCV RNA (test code 89657) is suggested. For additional information please refer to http://education.Compufirst/faq/UST75o1 (This link is being provided for informational/ educational purposes only.) Blood Venous blood specimen / Unknown 03/28/2023 10:26 AM EDT 03/28/2023 10:27 AM EDT Tran Spears [facility] LAB BLOOD ORDERABLES Lydia l Result [facility] [address], [place] [address] [facility]t [address] [place] [address] * HIV-1/2 Antigen and Antibodies, Fourth Generation, with Reflexes (03/28/2023 10:26 AM EDT) HIV Antigen/Antibody, 4th Generation NON-REAC TIVE NON-REAC TIVE [facility] [place] [employer] Comment: HIV-1 antigen and HIV-1/HIV-2 antibodies were not detected. There is no laboratory evidence of HIV infection. PLEASE NOTE: This information has been disclosed to you from records whose confidentiality may be protected by state law. ??If your state requires such protection, then the state law prohibits you from making any further disclosure of the information without the specific written consent of the person to whom it pertains, or as otherwise permitted by law. A general authorization for the release of medical or other information is NOT sufficient for this purpose. ?? For additional information please refer to http://education.[employer] [place]/faq/CQB167 (This link is being provided for informational/ educational purposes only.) The performance of this assay has not been clinically validated in patients less than 2 years old. Blood Venous blood specimen / Unknown 03/28/2023 10:26 AM EDT 03/28/2023 10:27 AM EDT us Tran Spears CN LAB BLOOD ORDERABLES Lydia l Result [place] [address], [place] [address] [facility] [address] [place] [address] * THINPREP TIS PAP (04/14/2022 11:19 AM EDT) Clinical Information: None given [facility] COMMENT SEE COMMENT [facility] Comment: EXPLANATORY NOTE: ? The Pap is a screening test for cervical cancer. It is ?? not a diagnostic test and is subject to false negative ?? and false positive results. It is most reliable when a ?? satisfactory sample, regularly obtained, is submitted ?? with relevant clinical findings and history, and when ?? the Pap result is evaluated along with historic and ?? current clinical information. ?? COMMENT: SEE COMMENT [facility] Comment: This case could not be evaluated with computer assisted technology. The slide was manually screened according to routine procedures. District Sales Manager : SEE COMMENT [facility] Comment: AGUSTINA, CT(ASCP) CT screening location: [address] ??[id number] Interpretation/R esult: Negative for intraepithelial lesion or malignancy. [facility] LMP: 03/17/22 [facility] Prev. BX: NONE GIVEN [facility] Prev. PAP: NONE GIVEN [facility] Review District Sales Manager : SEE COMMENT [facility] Comment: RMM, CT(ASCP) CT screening location: [address] ??[id number] SOURCE: None given [facility] Statement Of Adequacy: SEE COMMENT [facility] Comment: Satisfactory for evaluation. Endocervical/transformation zone component present. 04/14/2022 11:1 9 AM EDT Tran Spears CNM LAB PATHOLOGY ORDERABLES Final Result [facility] [address] [place] [address], from Last 3 Months or Most Recently Relevant to Health Maintenance Insurance [id number] Address: [facility] [id number] [place] [phone] Care Teams Wig Dresser Relationship Specialty Start Date End Date Valentine Lyman NP [address] [place] [address] PCP - General Family Medicine 07/23/24
--- OUTSIDE RECORDS SUMMARY | 2024-12-03 18:15 | XMS_ITS | Encounter Summary ---
Author Organization [employer] Address [address] [facility] 7t [place] [address] Care Team Providers Care Broadcast Correspondent Name Role Phone Valentine Lyman NP Primary Care Provider [phone] Reason for Visit * Reason Onset Date Comments Chart Prep 11/22/2024 Encounter Details Date Type Department Care Team ([facility] st Contact Info) Description 11/22/2024 Telephone [facility] [address] [place], [place] [phone] Cristine Gramajo MA Chart Prep Social History Tobacco Use Types Packs/Day Years [...] as of this encounter Miscellaneous Notes * Telephone Encounter - Cristine Gramajo MA - 11/22/2024 3:23 PM EST Chart Prep Labs: not applicable Images: done Vaccines due: Flu Referrals: Nutrition appointment on 12/11/24 at 9 Am Screenings: pap smear Overdue care gaps: Sbirt, SDOH, PHQ-9, Oral Health documented in this encounter Plan of Treatment Upcoming Encounters Date Type Department Care Team (Late st Contact Info) Description 12/11/2024 9:00 AM EDT Clinical Support [facility] DIABETES/NUTRITION [address] [place] [address] [place] [address] documented as of this encounter Visit Diagnoses Not on filedocumented in this encounter Additional Health Concerns Assessment Noted Time PHQ-9 Depression Total Score: 0 06/24/20 23 1:13 PM EDT documented as of this encounter Care Teams Broadcast Correspondent Relationship Specialty Start Date End Date Valentine Lyman NP [address] [place] [address] PCP - General Family Medicine 07/23/24 documented as of this encounter
--- OUTSIDE RECORDS SUMMARY | 2024-12-03 18:15 | XMS_ITS | Encounter Summary ---
Author Organization [employer] Address [address] [facility] 7t [place] [address] Care Team Providers Care Consulting Project Director Name Role Phone aVlentine Lyman NP Primary Care Provider [phone] Reason for Visit * Reason Comments Pre-visit Planning SDOH unable to reach LVM Encounter Details Date Type Department Care Team ([facility] st Contact Info) Description 11/26/2024 Patient Outreach [facility] [address] [place] [address] Valentine Lyman NP [address] [place] [address] Pre-visit Planning (SDOH unable to reach LVM ) Social History Tobacco Use Types Packs/Day Years Used Date Smoking Tobacco: Never Smokeless Tobacco: Never Alcohol Use Standard Drinks/Week Comments Yes 5 (1 standard drink = 0.6 oz pur e alcohol) 5 per month Depression Answer Date Recorded Patient Health Questionnaire-9 Score 0 06/24/2023 Housing Stability Answer Date Recorded What is your housing situation today? I have oleg kneny 07/05/[address] you li [...] enough money to get more: Often true 10/ Transportation Answer Date Recorded In the past [...] AM EDT documented as of this encounter Progress Notes * Brittni Barron - 11/26/2024 4:19 PM EST MARY Guy placed outbound call to patient to complete pre-visit planning. No answer at this time. Patient name and were not confirmed. CC left voicemail requesting return call. Direct contactinformation provided. documented in this encounter Plan of Treatment Upcoming Encounters Date Type Department Care Team (Late st Contact Info) Description 12/11/2024 9:00 AM EDT Clinical Support [facility] DIABETES/NUTRITION [address] [place] [address] [place] [address] documented as of this encounter Visit Diagnoses Not on filedocumented in this encounter Additional Health Concerns Assessment Noted Time PHQ-9 Depression Total Score: 0 06/24/20 23 1:13 PM EDT documented as of this encounter Care Teams Consulting Project Director Relationship Specialty Start Date End Date Valentine Lyman NP [address] [place] [address] PCP - General Family Medicine 07/23/24 documented as of this encounter
--- OUTSIDE RECORDS SUMMARY | 2024-12-03 18:15 | XMS_ITS | Encounter Summary ---
Author Organization [employer] Address [address] [facility] 7t [place] [address] Care Team Providers Care Clip Wrapper Name Role Phone Valentine Lyman NP Primary Care Provider [phone] Reason for Referral * Consultation (Routine) - Authorized Specialty Diagnoses / Procedures Referred By Polo adams Referred To Contact Dental Armature Repairer / Dentistry Diagnoses Healthcare maintenance Valentine Lyman NP [address] [place] [address] Phone: tel: fax: Referral ID Status Reason Start Date Expiration Date Visits Requested Visits Authorized [id number] Authorized Consult and Treat 12/03/2024 12/03/2025 1 1 Encounter Details Date Type Department Care Team (Late st Contact Info) Description 12/03/2024 2:00 PM EDT Office Visit [facility] MEDICINE [address] [place], [place] [phone] Valentine Lyman NP [address] [place], [place] [phone] Exposure to communicable disease (Primary Dx); Menorrhagia with regular cycle; Class 1 obesity with body mass index (BMI) of 31.0 to 31.9 in adult, unspecified obesity type, unspecified whether serious comorbidity present; PMDD (premenstrual dysphoric disorder); Healthcare maintenance Social History Tobacco Use Types Packs/Day Years [...] AM EDT documented as of this encounter Last Filed Vital Signs Vital Sign Reading [...] Mass Index 30.01 12/03/2024 2:07 PM EDT documented in this encounter Plan of Treatment Upcoming Encounters Date Type Department Care Team (Late st Contact Info) Description 12/11/2024 9:00 AM EDT Clinical Support [facility] DIABETES/NUTRITION [address] [place] [address] Gabby Hager, RD [address] [place] [address] Scheduled Orders Name Type Priority Associated Diagnoses Orde r Schedule Chlamydia/N. Gonorrhoeae RNA, TMA, Urogenitial Microbiology Routine Exposure to communicable disease Ordered: 12/03/2024 HIV-1/2 Antigen and Antibodies, Fourth Generation, with Reflexes Lab Routine Exposure to communicable disease Expected: 12/03/2024 (Approximate), Expires: 12/03/2025 Hepatitis C Antibody with Reflex to HCV, RNA, Quantitative, Real-Time PCR Lab Routine Exposure to communicable disease Expected: 12/03/2024, Expires: 12/03/2025 RPR (Monitor) with Reflex to??Titer Lab Routine Exposure to communicable disease Expected: 12/03/2024, Expires: 12/03/2025 CBC auto differential Lab Routine Menorrhagia with regular cycle Expected: 12/03/2024 (Approximate), Expires: 12/03/2025 TSH W/Reflex to FT4 Lab Routine Menorrhagia with regular cycle Expected: 12/03/2024 (Approximate), Expires: 12/03/2025 Comprehensive Metabolic Panel Lab Routine Menorrhagia with regular cycle Expected: 12/03/2024 (Approximate), Expires: 12/03/2025 Hemoglobin A1c Lab Routine Menorrhagia with regular cycle Expected: 12/03/2024 (Approximate), Expires: 12/03/2025 Scheduled Referrals Name Type Priority Associated Diagnoses Orde r Schedule Referral to [facility] Dental Adult Outpatient Referral Routine Healthcare maintenance Expected: 12/03/2024 (Approximate), Expires: 12/03/2025 documented as of this encounter Visit Diagnoses Diagnosis Exposure to communicable disease- Primary Contact with or exposure to unspecified communicable disease Menorrhagia with regular cycle Class 1 obesity with body mass index (BMI) of 31.0 to 31.9 in adult, unspecified obesity type, unspecified whether serious comorbidity present PMDD (premenstrual dysphoric disorder) Premenstrual tension syndromes Healthcare maintenance documented in this encounter Additional Health Concerns Assessment Noted Time PHQ-9 Depression Total Score: 16 025 3:21 PM EDT documented as of this encounter Care Teams Clip Wrapper Relationship Specialty Start Date End Date Valentine Lyman NP [address] [place] [address] PCP - General Family Medicine 07/23/24 documented as of this encounter
--- OUTSIDE RECORDS SUMMARY | 2024-12-03 18:15 | XMS_ITS | Encounter Summary ---
Author Organization [facility] Address [address] [place] [address] Phone Care Team Providers Care Information Assurance Name Role Phone Melissa Mccloud MD Primary Care Provider Unavailabl e Encounter Details Date Type Department Care Team (Late st Contact Info) Description 05/12/2017 Conversion Encounter [facility] - [address] [address] Social History Tobacco Use Types Packs/Day Years Used Date Smoking Tobacco: Never Comments:Never smoker Comments Unknown Sex and Gender Information Value Date Recorded Sex Assigned at Not on file Legal Sex Female 5:07 PM EDT Gender Identity Not on file Sexual Orientation Not on file documented as of this encounter Plan of Treatment Not on file documented as of this encounter Visit Diagnoses Not on filedocumented in this encounter Care Teams Information Assurance Relationship Specialty Start Date End Date Melissa Mccloud MD PCP - General 05/06/17 documented as of this encounter
--- OUTSIDE RECORDS SUMMARY | 2024-12-03 18:15 | XMS_ITS | Encounter Summary ---
Author Organization [employer] Address [address] [facility] 7t [place] [address] Care Team Providers Care Metal Caster Name Role Phone Kimberley KamP Primary Care Provider [phone] Olivia Howard CLINICAL RESEARCH COORDINATOR Primary Care Provider [phone] Valentine Lyman CLINICAL RESEARCH COORDINATOR Primary Care Provider [phone] Reason for Visit * Reason Onset Date Comments Med Refill 04/03/2024 Encounter Details Date Type Department Care Team (Late st Contact Info) Description 04/03/2024 Refill [facility] MEDICINE [address] [place], [place] [phone] Kimberley Kam FNP [address] [place] [address] Social History Tobacco Use Types Packs/Day Years Used Date Smoking Tobacco: Never Smokeless Tobacco: Never Alcohol Use Standard Drinks/Week Comments Yes 5 (1 standard drink = 0.6 oz pur e alcohol) 5 per month Depression Answer Date Recorded Patient Health Questionnaire-9 Score 0 06/24/2023 Housing Stability Answer Date Recorded What is your housing situation today? I have olegmartin kenny 07/05/[address] you [...] AM EDT documented as of this encounter Plan of Treatment Upcoming Encounters Date Type Department Care Team (Late st Contact Info) Description 12/11/2024 9:00 AM EDT Clinical Support [facility] DIABETES/NUTRITION [address] [place] [address] Gabby Hager, ARA [address] [place] [address] documented as of this encounter Visit Diagnoses Not on filedocumented in this encounter Additional Health Concerns Assessment Noted Time PHQ-9 Depression Total Score: 0 06/24/20 23 1:13 PM EDT documented as of this encounter Care Teams Metal Caster Relationship Specialty Start Date End Date Kimberley Kam FNP [address] [place] [address] PCP - General Family Medicine 04/13/23 05/29/24 Olivia Howard NP [address] [place] [address] PCP - General Family Medicine 05/30/24 07/22/24 Valentine Lyman NP [address] [place] [address] PCP - General Family Medicine 07/23/24 documented as of this encounter
--- OUTSIDE RECORDS SUMMARY | 2024-12-03 18:15 | XMS_ITS | Encounter Summary ---
Author Organization [facility] Address [address] [place] [address] Phone Care Team Providers Care Electric Needle Specialist Name Role Phone Melissa Mccloud MD Primary Care Provider Unavailabl e Encounter Details Date Type Department Care Team (Late st Contact Info) Description 2016 Documentation [facility] [address] [place], [place] [phone] Family Medicine, Physician [address] [place] [address] Social History Tobacco Use Types Packs/Day Years [...] on filedocumented in this encounter Care Teams Electric Needle Specialist Relationship Specialty Start Date End Date Melissa Mccloud MD PCP - General 05/06/17 documented as of this encounter
[2024-12-03 18:22] LABS: CT PCR NOT DETECTED (Not Detect.); NG PCR NOT DETECTED (Not Detect.)
== END 2024-12-03 16:44 | disposition home or self-care (01) ==
LOC: HO.LNP 16:43
PROVIDERS: Visit Provider Nurse Practitioner Family
DX: Z20.9 Contact with and (suspected) exposure to unspecified communicable disease (principal)
CPT/HCPCS: 87491; 87591

== ENCOUNTER 2025-01-28 09:42 | Outpatient (REF) | payer OTHER, SELFPAY ==
--- OUTSIDE RECORDS SUMMARY | 2025-01-28 10:36 | XMS_ITS | Clinical Summary ---
Author Organization [employer] Address [address] [facility] 7t [place] [address] Care Team Providers Care Client Account Assistant Name Role Phone Valentine Lyman NP Primary Care Provider [phone] Allergies No known active allergies Medications escitalopram (Lexapro) 5 MG tabletIndication s:PMDD (premenstrual dysphoric disorder) Take 1 tablet (5 mg) by mouth Once per day. 30 tablet 2 12/03/2024 Active multivitamin () 27-0.8 MG tablet Take 1 tablet by mouth Once per day. 30 tablet 11 12/03/2024 Active Active Problems Problem Noted Date Diagnosed Date PMDD (premenstrual dysphoric disorder) Assessment & Plan (12/21/2024 11:19 AM EDT): Pt with consistent increase in dysphoric symptoms and anxiety before menses Declines contraception Trial low dose ssri, Medication Indications, side effects and duration of therapy reviewed, pt aware to call clinic for worsening symptoms or failure to resolve May trial in 2 weeks before menses or 1 tablet daily for the month Exposure to communicable disease 12/03/2024 Assessment & Plan (12/21/2024 11:16 AM EDT): Sti screening completed today, pt asymptomatic Menorrhagia with regular cycle 12/03/2024 Assessment & Plan (12/21/2024 11:17 AM EDT): Metabolic labs as ordered below, pt declines contraception today Class 1 obesity with body ma ss index (BMI) of 31.0 to 31.9 in adult 12/03/2024 Assessment & Plan (12/21/2024 11:16 AM EDT): Dietary Recommendations: Fruits, vegetables, whole grains, protein foods, and fat-free or low-fat dairy products are healthy choices. Eat different types of protein foods in your diet. This can include seafood, lean meats, poultry, beans, peas, lentils, nuts, seeds, soy products, and eggs. Limit foods and beverages higher in added sugars, saturated fat, and sodium. Exercise Recommendations: At least 150 minutes of moderate-intensity physical activity per week, or an equivalent combination of moderate- and vigorous-intensity activity Encounters Date Type Department Care Team Description 01/28/2025 Travel 01/15/2025 Telephone [facility] MEDICINE [address] [place] [phone] Marie Marshall MA Lulu recall 12/11/2024 9:00 AM EDT Clinical Support [facility] DIABETES/NUTRITION [address] [place] [address] Dietary counseling 12/11/2024 Travel 12/03/2024 2:00 PM EDT Office Visit [facility] MEDICINE [address] [place] [address] Valentine Lyman NP Exposure to communicable disease (Primary Dx); Menorrhagia with regular cycle; Class 1 obesity with body mass index (BMI) of 31.0 to 31.9 in adult, unspecified obesity type, unspecified whether serious comorbidity present; PMDD (premenstrual dysphoric disorder); Healthcare maintenance 11/26/2024 Patient Outreach [facility] CHC MED & PEDS [address] [place] [address] Valentine Lyman NP Pre-visit Planning ([facility] unable to reach [facility] ) 11/22/2024 Telephone [facility] MEDICINE [address] [place] [phone] Cristine Gramajo MA Chart Prep from Last 3 Months Immunizations Name Administration [...] 11/24/2001,12/03/1998 Meningococcal MCV4P [id number] 12/26/2014,07/30/20 09 Novel [id number], all formulations 07/30/2009 Tdap 03/22/2022,07/30/2009 Varicella 05/10/2008,05/27/1999 [...] EDT Inhaled Oxygen Concentration - - Weight 75.8 kg (167 lb) 12/13/2024 12:06 PM EDT Height 160 cm (5' 3 ) 12/13/2024 12:06 PM EDT Body Mass Index 29.58 12/13/2024 12:06 PM EDT Plan of Treatment Upcoming Encounters Date Type Department Care Team (Late st Contact Info) Description 02/25/2025 9:00 AM EDT Clinical Support [facility] DIABETES/NUTRITION [address] [place] [address] [place] [address] 04/22/2025 1:15 PM EDT Procedure Visit [facility] MEDICINE [address] [place] [address] ReyulyssesTran bhatt, CNM [address] [place] [address] Health Maintenance Due Date Last Done Comments COVID-19 Vaccine ( season) 2024 01/23/2021, 12/26/2020 Influenza Vaccine (#1) 2024 , 07/01/2017, 12/22/2012, Additional history exists Family Planning (PISQ) 04/02/2025 04/02/2024 Pap Smear 04/14/2025 04/14/2022 Alcohol/Substance Use Screening 12/03/2025 12/03/2024 Depression Screening [...] Procedure Name Priority Date/Time Associated Diagnosis Comments CHLAMYDIA/N. GONORRHOEAE RNA, TMA, UROGENITAL Routine 12/03/2024 12:00 AM EDT Exposure to communicable disease LIPID PANEL, STANDARD Routine 07/21/2023 10:06 AM [...] Recently Relevant to Health Maintenance Results * Chlamydia/N. Gonorrhoeae RNA, TMA, Urogenitial (12/03/2024 12:00 AM EDT) CT PCR NOT DETECTED Not Detect. [facility] Comment:A not detected test result does not exclude the possibilityof infection because test results can be affected byimproper specimen collection, concurrent antibiotic therapy,or the number of organisms in the specimen which may bebelow the sensitivity of the test. As with many diagnostictests, results from the Xpert CT/NG assay should beinterpreted in conjunction with other laboratory andclinical data available to the clinician.Xpert CT/NG performance has not been evaluated in patientsless than 14 years of age. The assay should not be used forthe evaluationof suspected sexual abuse or for other medico-legalindications. Additional testing is recommended in anycircumstance when false positive or false negative resultscould lead to adverse medical, social or psychologicalconsequences. NG PCR NOT DETECTED Not Detect. [facility] Comment:A not detected test result does not exclude the possibilityof infection because test results can be affected byimproper specimen collection, concurrent antibiotic therapy,or the number of organisms in the specimen which may bebelow the sensitivity of the test. As with many diagnostictests, results from the Xpert CT/NG assay should beinterpreted in conjunction with other laboratory andclinical data available to the clinician.Xpert CT/NG performance has not been evaluated in patientsless than 14 years of age. The assay should not be used forthe evaluationof suspected sexual abuse or for other medico-legalindications. Additional testing is recommended in anycircumstance when false positive or false negative resultscould lead to adverse medical, social or psychologicalconsequences. Urine (Urine, Random) 12/03/2024 12/03/2024 Narrative [facility] - 12/03/2024 6:22 PM EDT Urine Valentine Lyman NP LAB MICROBIOLOGY - GENERAL ORDER SAUMYA Final Result [facility] [address] [place] [phone] [phone] * (ABNORMAL) Lipid Panel, Standard (07/21/2023 10:06 AM EDT) Triglycerides 75 <150 mg/dL [facility] Comment:Desirable Triglyceri de: less than 150 mg/dLBorderline High Triglyceride 150-199 mg/dLHigh Triglyceride: 200-499 mg/dLVery High Triglyceride: greater than or equal to 5OO mg/dL Cholesterol 174 <200 mg/dL [facility] Comment:Desirable Cholestero l: less than 200 mg/dLBorderline High Cholesterol: 200-239 mg/dLHigh Cholesterol: greater than 239 mg/dL LDL Cholesterol Calculated 112(H) <100 mg/dL [facility] Comment:Desirable LDL: less than 100 mg/dLNear Optimal/Above Optimal LDL: 110- 129 mg/dLBorderline High LDL: 130-159 mg/dLHigh LDL: 160-189 mg/dLVery High LDL: greater than or equal to 190 mg/dL HDL Cholesterol 47 >40 mg/dL [facility] Comment:Desirable HDL: great er than 40 mg/dL Note: This HDL assay may give artificially low results in patients with liver disease. Blood Venous blood specimen / Unknown 07/21/2023 10:06 AM EDT 07/21/2023 11:33 AM EDT Kimberley Eddy IMPLEMENTATION SPECIALIST [employer] LAB BLOOD ORDERABLES Final Resu lt Performing Organization Address City/[facility]/ZIP Co de Phone Number [facility] [address] [place] [address] [phone] * Hepatitis C Antibody with Reflex to HCV, RNA, Quantitative, Real-Time PCR (03/28/2023 10:26 AM EDT) Hepatitis C Antibody NON-REACT ASHLY NON-REACT ASHLY [email or web address] Comment: HCV antibody was non-reactive. There is no laboratory evidence of HCV infection. In most cases, no further action is required. However, if recent HCV exposure is suspected, a test for HCV RNA (test code 12739) is suggested. For additional information please refer to http://education.Encite/faq/DZM40j9 (This link is being provided for informational/ educational purposes only.) Blood Venous blood specimen / Unknown 03/28/2023 10:26 AM EDT 03/28/2023 10:27 AM EDT Tran Spears CN LAB BLOOD ORDERABLES Lydia l Result [facility] [address] [facility], [place] [address] [email or web address] [address] [place] [address] * HIV-1/2 Antigen and Antibodies, Fourth Generation, with Reflexes (03/28/2023 10:26 AM EDT) HIV Antigen/Antibody, 4th Generation NON-REAC TIVE NON-REAC TIVE [facility] Comment: HIV-1 antigen and HIV-1/HIV-2 antibodies were [...] ?? For additional information please refer to http://education.Encite/faq/KGO974 (This link is being provided for informational/ educational purposes only.) The performance of this assay has not been clinically validated in patients less than 2 years old. Blood Venous blood specimen / Unknown 03/28/2023 10:26 AM EDT 03/28/2023 10:27 AM EDT Tran Spears [facility] LAB BLOOD ORDERABLES Lydia thompson Result [facility] [address] [place] [address], [place] [address] [facility] [address] [place] [phone] * THINPREP TIS PAP (04/14/2022 11:19 AM EDT) Clinical Information: None given [facility] COMMENT SEE COMMENT [facility]OUND[facility] ON [...] was manually screened according to routine procedures. Ethylene Compressor Operator : SEE COMMENT [facility] Comment: AGUSTINA, CT(ASCP) CT screening location: [address] ??[address] Interpretation/R esult: Negative for intraepithelial lesion or malignancy. [facility] LMP: 03/17/22 [facility] Prev. BX: NONE GIVEN [facility] Prev. PAP: NONE GIVEN [facility] ON LAB SYSTEM Review Ethylene Compressor Operator : SEE COMMENT [facility] Comment: RMM, CT(ASCP) CT screening location: [address] ??[address] SOURCE: None given [facility] Statement Of Adequacy: SEE COMMENT [facility] Comment: Satisfactory for evaluation. Endocervical/transformation zone component present. 04/14/2022 11:1 9 AM EDT us Tran Spears CNM LAB PATHOLOGY ORDERABLES Final Result [facility] [address] from Last 3 Months or Most Recently Relevant to Health Maintenance Insurance [place] [address] Care Teams Client Account Assistant Relationship Specialty Start Date End Date Valentine Lyman NP [address] [place] [address], [place] [address] PCP - General Family Medicine 07/23/24
--- OUTSIDE RECORDS SUMMARY | 2025-01-28 10:36 | XMS_ITS | Encounter Summary ---
Author Organization [employer] Address [address] [facility] 7t [place] [address] Care Team Providers Care Fur Blowing Machine Operator Name Role Phone Valentine Lyman NP Primary Care Provider [phone] Encounter Details Date Type Department Care Team (Latest Contact Info) Description 01/28/2025 Travel Social History Tobacco Use Types Packs/Day Years [...] Description 02/25/2025 9:00 AM EDT Clinical Support [facility] DIABETES/NUTRITION [address] [place] [address] [place] [address] 04/22/2025 1:15 PM EDT Procedure Visit [facility] MEDICINE [address] [place] [address] Tran Spears CNM [address] [place] [address] documented as of this encounter Visit Diagnoses Not on filedocumented in this encounter Additional Health Concerns Assessment Noted Time PHQ-9 Depression Total Score: 16 025 3:21 PM EDT documented as of this encounter Care Teams Fur Blowing Machine Operator Relationship Specialty Start Date End Date Valentine Lyman NP [address] [place] [address] PCP - General Family Medicine 07/23/24 documented as of this encounter
--- OUTSIDE RECORDS SUMMARY | 2025-01-28 10:36 | XMS_ITS | Clinical Summary ---
Author Organization [facility] Address [address] [place] [phone] Phone Care Team Providers Care Hardware Trainer Name Role Phone Melissa Mccloud MD Primary [...] nd well Other Family history of *Sudden /[place] under 55, Family history of Deafness, Family [...] age to complete this topic Care Teams Hardware Trainer Relationship Specialty Start Date End Date Melissa Mccloud MD PCP - General 05/06/17
--- OUTSIDE RECORDS SUMMARY | 2025-01-28 10:36 | XMS_ITS | Encounter Summary ---
Author Organization [employer] Address [address] [facility] 7t [place] [address] Care Team Providers Care Gauge Operator Name Role Phone Kimberley KamP Primary Care Provider [phone] Olivia Howard DIRECTOR OF EMPLOYEE DEVELOPMENT Primary Care Provider [phone] Valentine Lyman DIRECTOR OF EMPLOYEE DEVELOPMENT Primary Care Provider [phone] Reason for Visit * Reason Onset Date Comments Med Refill 04/03/2024 Encounter Details Date Type Department Care Team (Late st Contact Info) Description 04/03/2024 Refill [facility] MEDICINE [address] [place], [place] [phone] Kimberley Kam FNP [address] [place] [address] Social History Tobacco Use Types Packs/Day Years [...] Description 02/25/2025 9:00 AM EDT Clinical Support [facility] DIABETES/NUTRITION [address] [place] [address] [place] [address] 04/22/2025 1:15 PM EDT Procedure Visit [facility] MEDICINE [address] [place] [address] Tran Spears CNM [address] [place] [address] documented as of this encounter Visit Diagnoses Not on filedocumented in this encounter Additional Health Concerns Assessment Noted Time PHQ-9 Depression Total Score: 0 06/24/20 1:13 PM EDT documented as of this encounter Care Teams Gauge Operator Relationship Specialty Start Date End Date Kimberley Kam FNP [address] [place] [address] PCP - General Family Medicine 04/13/23 05/29/24 Olivia Howard NP [address] [place] [address] PCP - General Family Medicine 05/30/24 07/22/24 Valentine Lyman NP [address] [place] [address] PCP - General Family Medicine 07/23/24 documented as of this encounter
--- OUTSIDE RECORDS SUMMARY | 2025-01-28 10:36 | XMS_ITS | Encounter Summary ---
Author Organization [facility] Address [address] [place] [address] Phone Care Team Providers Care Journalism Teacher Name Role Phone Melissa Mccloud MD Primary Care Provider Unavailabl e Encounter Details Date Type Department Care Team (Late st Contact Info) Description 05/12/2017 Conversion Encounter [facility] - [address] [address] Social History Tobacco Use Types Packs/Day Years [...] on filedocumented in this encounter Care Teams Journalism Teacher Relationship Specialty Start Date End Date Melissa Mccloud MD PCP - General 05/06/17 documented as of this encounter
--- OUTSIDE RECORDS SUMMARY | 2025-01-28 10:36 | XMS_ITS | Encounter Summary ---
Author Organization [facility] Address [address] [place] [address] Phone Care Team Providers Care Forestry Workers Name Role Phone Melissa Mccloud MD Primary Care Provider Unavailabl e Encounter Details Date Type Department Care Team (Late st Contact Info) Description 2016 Documentation [facility] Family Medicine [address] [place], [place] [phone] Family Medicine, Physician [address] [place] [address] Social History Tobacco Use Types Packs/Day Years [...] on filedocumented in this encounter Care Teams Forestry Workers Relationship Specialty Start Date End Date Melissa Mccloud MD PCP - General 05/06/17 documented as of this encounter
[2025-01-28 11:23] LABS: MANUAL DIFF FLAG NO
[2025-01-28 11:37] LABS: Eosinophils Absolute Auto 0.1 X10*3/uL (0.0-0.4); Eosinophils Percent Auto 1.4 % (0-4); Hematocrit 35.9 % (37.0-47.0); Hemoglobin 11.8 g/dl (12.0-16.0); Imm Gran Abs Auto 0.01 X10*3/uL (0.00-0.03); Imm Gran Pct Auto 0.2 % (0.0-0.4); Lymphocytes Absolute Auto 1.5 X10*3/uL (1.2-4.9); Lymphocytes Percent Auto 36.4 % (20-40); Mean Corpuscular HGB Conc 32.9 g/dl (31.0-35.0); Mean Corpuscular Hemoglobin 31.6 pg (27.0-33.0); Mean Platelet Volume 10.8 fL (9.4-12.3); Monocytes Absolute Auto 0.3 X10*3/uL (0.1-1.2); Monocytes Percent Auto 6.7 % (2-11); Neutrophils Absolute Auto 2.3 x10*3/uL (2.0-8.3); Neutrophils Percent Auto 54.3 % (45-73); Platelet Count 249 X10*3/uL (160-400); Red Blood Count 3.74 X10*6/uL (4.20-5.50); Red Cell Distribution Width 12.7 % (11.0-16.0); White Blood Count 4.2 X10*3/uL (4.8-10.8)
[2025-01-28 12:02] LABS: Alanine Aminotransferase 16 U/L (0-31); Albumin Level 4.3 g/dL (3.5-5.0); Alkaline Phosphatase 73 U/L (39-117); Anion Gap 10 (12-20); Aspartate Amino Transferase 19 U/L (5-31); Bilirubin Total 0.2 mg/dL (0.0-1.0); Blood Urea Nitrogen 15 mg/dL (9-16); Calcium 9.2 mg/dL (8.4-10.2); Carbon Dioxide 28 mmol/L (22-29); Chloride 105 mmol/L (96-108); Estimated Glomerular Filt Rate > 60; Glucose Random 98 mg/dL (60-115); Potassium 4.2 mmol/L (3.3-5.1); Sodium 139 mmol/L (135-145); Total Protein 7.3 g/dL (6.5-8.0)
[2025-01-28 12:04] LABS: Estimated Average Glucose 88 mg/dL; Hemoglobin A1C 84.6413 umol/L; Hemoglobin A1c % 4.7 % (<6.0); Total Hemoglobin (HGBA1C) 3017.5198 umol/L
[2025-01-28 12:20] LABS: HIV AB/AG Nonreactive (Nonreactive); HIV Num 1 0.07 S/CO (0.00-0.99); ~HepC Num1 0.14 S/CO (0.00-0.79); ~Hepatitis C Antibody Nonreactive (Nonreactive)
[2025-01-28 12:26] LABS: TSH reflex Free T4 3.48 uIU/mL (0.32-4.0)
[2025-01-29 10:04] LABS: RPR Rapid Plasma Reagin NON-REACTIVE (NON-REACTIVE)
== END 2025-01-28 09:43 | disposition home or self-care (01) ==
LOC: HO.HHCL 09:42
PROVIDERS: Visit Provider Nurse Practitioner Family
DX: Z13.1 Encounter for screening for diabetes mellitus (principal); N92.0 Excessive and frequent menstruation with regular cycle; Z20.9 Contact with and (suspected) exposure to unspecified communicable disease
CPT/HCPCS: 36415; 80053; 83036; 84443; 85025; 86592; 86803; 87389

== ENCOUNTER 2025-04-22 13:39 | Outpatient (REF) | payer OTHER, SELFPAY ==
[2025-04-24 23:03] LABS: C. trachomatis RNA TMA NOT DETECTED (NOT DETECTED); N. gonorrhoeae RNA TMA NOT DETECTED (NOT DETECTED); Trichomonas (NAAT) NOT DETECTED (NOT DETECTED)
== END 2025-04-22 13:40 | disposition home or self-care (01) ==
LOC: HO.HHCLNP 13:39
PROVIDERS: Visit Provider Advanced Practice Midwife
DX: Z11.3 Encounter for screening for infections with a predominantly sexual mode of transmission (principal); Z12.4 Encounter for screening for malignant neoplasm of cervix; Z11.8 Encounter for screening for other infectious and parasitic diseases
CPT/HCPCS: 87491; 87591; 87661; 88175